=== PATIENT | male | born 1955 | race Caucasian/White ===

== ENCOUNTER 2023-08-16 15:41 | Emergency (ER) | payer BC ==
--- NOTE | 2023-08-16 15:52 | ED Physician Documentation ---
PD HPI UPPER EXT INJURY - Stated complaint Stated Complaint: R THUMB LAC - History obtained from History obtained from: Patient - History of Present Illness Location: Right, Finger (radial side of distal thumb.) Type of injury: Laceration (razor type scraper while removing caulk.) Timing - onset: Today Timing - details: Abrupt onset, Still present Worsened by: Palpating Associated symptoms: No: Weakness, Numbness PD PAST MEDICAL HISTORY - Past Medical History Endocrine/Autoimmune: None PD ED PE NORMAL - Vitals Vital signs reviewed: Yes - General General: Alert and oriented X 3, Well developed/nourished - Derm Derm: Normal color, Warm and dry - Extremities Extremities: Other (Radial side of the thumb from the proximal phalanx to the corner of the nailbed and tip with a 4.1 cm laceration to the fatty tissue. Good range of motion of the area. Sensation is present. No deep structures involved.) - Neuro Neuro: No motor deficit, No sensory deficit Results - Vitals Vitals: Vital Signs - 24 hr 08/16/23 15:48 Temperature 36.6 C Heart Rate 92 Respiratory 16 Rate Blood Pressure 154/102 H O2 Saturation 98 Oxygen O2 Source Room air Procedures - Laceration (location) right thumb Length in cm: 4.1 Wound type: Linear, Into subcut fat, Clean Neurovascular status: Sensory intact, Motor intact, Vascular intact Tendon involvement: Tendon intact Anesthesia: Lidocaine 1% (Digital block) Wound preparation: Irrigated copiously NS, Wound explored, To the base, debridement of wound edges (traumatic laceration/avulsion) Skin layer closure: Nylon, Running, Size #-0 - enter number (4), Sutures - enter # (14) Other: Patient tolerated well, No complications, Tetanus booster given PD Medical Decision Making - ED course Complexity details: considered differential (Patient with an accidental laceration of the side of the thumb with a razor type scraper. Still with some bleeding. Significant laceration to the fatty tissue. Not involving the nail. Will need sutures.), d/w patient Departure - Departure Disposition: 01 Home, Self Care Clinical Impression: Thumb laceration Condition: Stable Record reviewed to determine appropriate education?: Yes Instructions: ED Laceration Hand Comments: It is okay to wash and shower. Clean off the wound twice a day with soap and water, or peroxide and water. Apply some antibiotic ointment to it to keep it moist. Also to watch for signs of infection such as purulence, redness or increasing pain. Return to your primary care or the ER at the specified time for suture removal. Suture removal 8 to 10 days. Gentle use of the thumb initially until the skin feels a little better in the first 2 to 3 days and then progressed to more normal use as tolerated. It will be tender of course. Tylenol or ibuprofen if needed for pains.
[2023-08-16 16:03] VITALS: BP 154/102; O2SAT 98
[2023-08-16] MEDS: TETANUS/DIPHTHERIA/PERTUSSIS 0.5 ML SYRINGE IM ONE (16:51)
== END 2023-08-16 16:56 | disposition home or self-care (01) ==
LOC: ED 15:41
DX: S61.011A Laceration without foreign body of right thumb without damage to nail, initial encounter (principal); W27.8XXA Contact with other nonpowered hand tool, initial encounter; Z23 Encounter for immunization
CPT/HCPCS: 12002; 90471; 99283